=== PATIENT | female | born 1955 | race American Indian/Alaskan Native ===

== ENCOUNTER 2016-03-21 15:46 | Emergency (ER) | payer MEDICARE ==
[2016-03-21 15:59] VITALS: BP 159/107
--- NOTE | 2016-03-21 18:38 | Emergency Department Report ---
ED General Adult HPI - General Chief complaint: Skin/Abscess/Foreign Body Stated complaint: FOREIGN OBJECT IN FOOD Time Seen by Provider: 03/21/16 18:12 Source: patient Mode of arrival: Ambulatory Limitations: No Limitations - History of Present Illness Initial comments: Patient states that she almost ate a foreign body while in [facility] today and brought foreign body in with her and wanted to know if we knew what was. Patient denies any shortness of breath nausea vomiting or neck pain. - Related Data Previous Rx's Medication Instructions Recorded Last Taken Type Amoxicillin [Amoxicillin TAB] 875 mg PO BID #20 tablet 03/21/16 Unknown Rx Allergies Allergy/AdvReac Type Severity Reaction Status Date / Time No Known Allergies Allergy Verified 03/21/16 16:00 ED Review of Systems ROS: Stated complaint: FOREIGN OBJECT IN FOOD Other details as noted in HPI Comment: All other systems reviewed and negative ED Past Medical Hx - Past Medical History Previous Medical History?: Yes Hx Psychiatric Treatment: Yes - Surgical History Past Surgical History?: No - Social History Smoking Status: Current Every Day Smoker Substance Use Type: None - Medications Home Medications: Home Medications Medication Instructions Recorded Confirmed Last Taken Type Amoxicillin [Amoxicillin TAB] 875 mg PO BID #20 tablet 03/21/16 Unknown Rx ED Physical Exam - General Limitations: No Limitations General appearance: alert, in no apparent distress - Head Head exam: Present: atraumatic, normocephalic - Eye Eye exam: Present: normal appearance - ENT ENT exam: Present: mucous membranes moist - Neck Neck exam: Present: normal inspection - Respiratory Respiratory exam: Absent: respiratory distress ED Course Vital Signs 03/21/16 15:55 Temperature 98.6 F Pulse Rate 97 H Respiratory 16 Rate Blood Pressure 159/107 O2 Sat by Pulse 100 Oximetry Critical care attestation.: If time is entered above; I have spent that time in minutes in the direct care of this critically ill patient, excluding procedure time. ED Disposition Clinical Impression: Normal exam Disposition: DISCHARGED TO HOME OR SELFCARE Is pt being admited?: No Does the pt Need Aspirin: No Condition: Stable Instructions: Food Poisoning (ED) Prescriptions: Amoxicillin [Amoxicillin TAB] 875 mg PO BID #20 tablet Referrals: DR ISIDORO [Other] - 3-5 Days
== END 2016-03-21 19:09 | disposition home or self-care (01) ==
LOC: ED 15:46
DX: Z00.8 Encounter for other general examination (principal); F17.200 Nicotine dependence, unspecified, uncomplicated
CPT/HCPCS: 99282

== ENCOUNTER 2016-06-10 13:39 | Emergency (ER) | payer MEDICARE ==
--- NOTE | 2016-06-10 14:54 | Emergency Department Report ---
Entered by LIZANDRO DEL VALLE, acting as scribe for JOAQUIN WILSON NP. Chief Complaint: Dyspnea/Respdistress Stated Complaint: NAOMI Time Seen by Provider: 06/10/16 14:28 - HPI History of Present Illness: 61 y/o female presents c/o SOB that started yesterday and is aggravated by physical exertion. Pt notes dizziness, BAUTISTA, wheezing and a non-productive cough but denies chest pain. Pt endorses tobacco use. Medication includes seroquel. no cp smoker lungs cta no sinus tenderness anxious NAD ambulatory No focal or neuro deficit VSS - ROS Review of Systems: as noted in HPI - Exam Vital Signs: Vital Signs 06/10/16 14:17 Temperature 98.3 F Pulse Rate 102 H Respiratory 22 Rate Blood Pressure 134/98 O2 Sat by Pulse 96 Oximetry Physical Exam: as noted in HPI MSE screening note: Focused history and physical exam performed. Due to findings the following was ordered: ED Disposition for MSE Condition: Stable This documentation as recorded by the scribe,LIZANDRO DEL VALLE,accurately reflects the service I personally performed and the decisions made by ,JOAQUIN WILSON NP.
--- NOTE | 2016-06-10 16:12 | XRay Report ---
Chest 2 views. History: Dyspnea. Findings: The heart is mildly enlarged with normal pulmonary vascularity. The lungs are clear. No pleural abnormalities are seen. Impression: Cardiomegaly with no acute findings.
[2016-06-10 17:25] LABS: Basophils % (Auto) 0.5 % (0.0-1.8); Eosinophils % (Auto) 0.9 % (0.0-4.3); Hematocrit 39.7 % (30.3-42.9); Hemoglobin 12.9 gm/dl (10.1-14.3); Mean Corpuscular HGB Conc 33 % (30-34); Mean Corpuscular Hemoglobin 30 pg (28-32); Mean Corpuscular Volume 93 fl (79-97); Platelet Count 204 K/mm3 (140-440); Red Blood Count 4.28 M/mm3 (3.65-5.03); Red Cell Distribution Width 13.6 % (13.2-15.2)
[2016-06-10 17:45] LABS: Alanine Aminotransferase 23 units/L (7-56); Albumin 3.9 g/dL (3.9-5); Albumin/Globulin Ratio 1.3 %; Alkaline Phosphatase 131 units/L (35-129); Anion Gap 19 mmol/L; Bilirubin,Total 0.5 mg/dL (0.1-1.2); Blood Urea Nitrogen 8 mg/dL (7-17); Calcium 8.7 mg/dL (8.4-10.2); Carbon Dioxide 23 mmol/L (22-30); Chloride 102.7 mmol/L (98-107); Glucose 132 mg/dL (65-100); Sodium 141 mmol/L (137-145)
[2016-06-10] MEDS ORDERED: XOPENEX IH ONE (18:42)
[2016-06-10] MEDS ORDERED: ATROVENT IH ONE (18:43)
[2016-06-10] MEDS ORDERED: DELTASONE PO ONE (18:44)
--- NOTE | 2016-06-10 19:05 | Emergency Department Report ---
ED Shortness of Breath HPI - General Chief Complaint: Dyspnea/Respdistress Stated Complaint: NAOMI Time Seen by Provider: 06/10/16 18:34 Source: patient, family Mode of arrival: Ambulatory Limitations: No Limitations - History of Present Illness Initial Comments: 11 y/o female presents c/o difficulty breathing for 1 months but got worse yesterday and is aggravated by physical exertion. Pt notes dizziness, BAUTISTA, wheezing and a non-productive cough but denies chest pain. Pt endorses tobacco use. Medication includes seroquel. no cp. She said she smoked one pack a day for 40 years and quit 2 weeks ago. Denies any personal history of blood clots or family history of blood clots. Denies any recent long distance travel by airplane or motor vehicle. Denies taking any hormones. Denies any recent surgery. She medical history schizoaffective disorder and hepatitis C.Denies any fever or chills. Denies any recent weight loss or night sweats. Denies coughing up blood. MD Complaint: shortness of breath, cough Onset/Timin -: month(s) Radiation: other (none) Pain Scale: 0 Improves With: rest Worsens With: exertion Known History Of: other (nicotine abuse, hepatitis C and schizoaffective disorder) Context: occured during exertion, smoke/fume exposure, anxiety Associated Symptoms: cough, other (dizziness) Treatments Prior to Arrival: none - Related Data Home Oxygen Therapy: No Previous Rx's Medication Instructions Recorded Last Taken Type Amoxicillin [Amoxicillin TAB] 875 mg PO BID #20 tablet 03/21/16 Unknown Rx ALPRAZolam [Xanax TAB] 0.25 mg PO BID PRN #10 tab 06/10/16 Unknown Rx Allergies Allergy/AdvReac Type Severity Reaction Status Date / Time No Known Allergies Allergy Verified 03/21/16 16:00 ED Review of Systems ROS: Stated complaint: NAOMI Other details as noted in HPI Comment: All other systems reviewed and negative Constitutional: denies: chills, fever ENT: denies: ear pain, throat pain, congestion Respiratory: cough, shortness of breath, SOB with exertion, SOB at rest. denies : orthopnea, stridor, wheezing Cardiovascular: dyspnea on exertion. denies: chest pain, palpitations, edema, syncope, paroxysmal nocturnal dyspnea Gastrointestinal: denies: abdominal pain, nausea, vomiting, diarrhea, constipation Genitourinary: denies: urgency, dysuria, frequency, hematuria, discharge Musculoskeletal: denies: back pain, arthralgia Skin: denies: rash Neurological: other (dizziness). denies: headache, weakness, numbness, paresthesias, confusion, abnormal gait, vertigo ED Past Medical Hx - Past Medical History Previous Medical History?: Yes Hx Psychiatric Treatment: Yes (Schizoaffective) Additional medical history: hepatitis C - Surgical History Past Surgical History?: No - Family History Family history: hypertension - Social History Smoking Status: Current Every Day Smoker Substance Use Type: Alcohol, Prescribed - Medications Home Medications: Home Medications Medication Instructions Recorded Confirmed Last Taken Type Amoxicillin [Amoxicillin TAB] 875 mg PO BID #20 tablet 03/21/16 Unknown Rx ALPRAZolam [Xanax TAB] 0.25 mg PO BID PRN #10 tab 06/10/16 Unknown Rx ED Physical Exam - General Limitations: No Limitations General appearance: alert, in no apparent distress - Head Head exam: Present: atraumatic, normocephalic, normal inspection - Eye Eye exam: Present: normal appearance, PERRL, EOMI. Absent: scleral icterus, conjunctival injection, periorbital swelling, periorbital tenderness Pupils: Present: normal accommodation - ENT ENT exam: Present: normal exam, normal orophraynx, mucous membranes moist, TM's normal bilaterally, normal external ear exam - Neck Neck exam: Present: normal inspection, full ROM. Absent: tenderness, meningismus, lymphadenopathy - Expanded Neck Exam Expanded Neck exam: Absent: tenderness, midline deformity, anterior neck swelling, carotid bruit - Respiratory Respiratory exam: Present: normal lung sounds bilaterally, respiratory distress (shortness of breath on exertion), other (dry cough). Absent: wheezes, rales, rhonchi, stridor, chest wall tenderness, accessory muscle use, decreased breath sounds, prolonged expiratory - Cardiovascular Cardiovascular Exam: Present: regular rate, normal rhythm, normal heart sounds. Absent: systolic murmur, diastolic murmur, JVD - Expanded Cardiovascular Exam Expanded Peripheral pulses: 2+: Radial (R), Radial (L), Posterior Tibialis (R), Posterior Tibialis (L), Dorsalis Pedis (R), Dorsalis Pedis (L) - GI/Abdominal GI/Abdominal exam: Present: soft, normal bowel sounds. Absent: distended, tenderness, guarding, rebound, rigid - Extremities Exam Extremities exam: Present: normal inspection, full ROM, normal capillary refill. Absent: tenderness, pedal edema, joint swelling, calf tenderness - Back Exam Back exam: Present: normal inspection, full ROM. Absent: CVA tenderness (L), muscle spasm, paraspinal tenderness, vertebral tenderness, rash noted - Neurological Exam Neurological exam: Present: alert, oriented X3, normal gait, reflexes normal. Absent: motor sensory deficit - Psychiatric Psychiatric exam: Present: anxious - Skin Skin exam: Present: warm, dry, intact, normal color. Absent: rash ED Course Vital Signs 06/10/16 14:17 Temperature 98.3 F Pulse Rate 102 H Respiratory 22 Rate Blood Pressure 134/98 O2 Sat by Pulse 96 Oximetry Vital Signs 06/10/16 06/10/16 14:17 21:50 Temperature 98.3 F Pulse Rate 102 H 92 H Respiratory 22 20 Rate Blood Pressure 134/98 Blood Pressure 130/82 [Left] O2 Sat by Pulse 96 98 Oximetry - Reevaluation(s) Reevaluation #1: 06/10/16 19:05 Patient stable. She received breathing treatment in ED room and that she felt better after treatment. Awaiting results of d-dimer. Reevaluation #2: 06/10/16 20:04 Patient with elevated d-dimer therefore CT and she'll chest ordered. Reevaluation #3: 06/10/16 21:[address] angiogram of chest done. No adverse reaction from the eye. Exercise pulse ox 96-97% on room air. ED Medical Decision Making - Lab Data Result diagrams: 06/10/16 17:10 06/10/16 17:10 Lab Results 06/10/16 06/10/16 06/10/16 Range/Units 17:10 17:10 17:10 WBC 8.0 (4.5-11.0) K/mm3 RBC 4.28 (3.65-5.03) M/mm3 Hgb 12.9 (10.1-14.3) gm/dl Hct 39.7 (30.3-42.9) % MCV 93 (79-97) fl MCH 30 (28-32) pg MCHC 33 (30-34) % RDW 13.6 (13.2-15.2) % Plt Count 204 (140-440) K/mm3 Lymph % (Auto) 23.6 (13.4-35.0) % [place] % (Auto) 7.5 H (0.0-7.3) % Eos % (Auto) 0.9 (0.0-4.3) % Baso % (Auto) 0.5 (0.0-1.8) % Lymph # 1.9 (1.2-5.4) K/mm3 [place] # 0.6 (0.0-0.8) K/mm3 Eos # 0.1 (0.0-0.4) K/mm3 Baso # 0.0 (0.0-0.1) K/mm3 Seg Neutrophils % 67.5 (40.0-70.0) % Seg Neutrophils # 5.4 (1.8-7.7) K/mm3 PT (12.2-14.9) Sec. INR (0.87-1.13) APTT (24.2-36.6) Sec. D-Dimer (0-234) ng/mlDDU Sodium 141 (137-145) mmol/L Potassium 4.0 (3.6-5.0) mmol/L Chloride 102.7 (98-107) mmol/L Carbon Dioxide 23 (22-30) mmol/L Anion Gap 19 mmol/L BUN 8 (7-17) mg/dL Creatinine 0.8 (0.7-1.2) mg/dL Estimated GFR > 60 ml/min BUN/Creatinine Ratio 10.00 % Glucose 132 H (65-100) mg/dL Calcium 8.7 (8.4-10.2) mg/dL Total Bilirubin 0.5 (0.1-1.2) mg/dL AST 23 (5-40) units/L ALT 23 (7-56) units/L Alkaline Phosphatase 131 H (35-129) units/L Troponin T < 0.010 (0.00-0.029) ng/mL Total Protein 7.0 (6.3-8.2) g/dL Albumin 3.9 (3.9-5) g/dL Albumin/Globulin Ratio 1.3 % 06/10/17 Range/Units 19:24 WBC (4.5-11.0) K/mm3 RBC (3.65-5.03) M/mm3 Hgb (10.1-14.3) gm/dl Hct (30.3-42.9) % MCV (79-97) fl MCH (28-32) pg MCHC (30-34) % RDW (13.2-15.2) % Plt Count (140-440) K/mm3 Lymph % (Auto) (13.4-35.0) % [place] % (Auto) (0.0-7.3) % Eos % (Auto) (0.0-4.3) % Baso % (Auto) (0.0-1.8) % Lymph # (1.2-5.4) K/mm3 [place] # (0.0-0.8) K/mm3 Eos # (0.0-0.4) K/mm3 Baso # (0.0-0.1) K/mm3 Seg Neutrophils % (40.0-70.0) % Seg Neutrophils # (1.8-7.7) K/mm3 PT 13.4 (12.2-14.9) Sec. INR 1.03 (0.87-1.13) APTT 31.6 (24.2-36.6) Sec. D-Dimer 1041.32 H (0-234) ng/mlDDU Sodium (137-145) mmol/L Potassium (3.6-5.0) mmol/L Chloride (98-107) mmol/L Carbon Dioxide (22-30) mmol/L Anion Gap mmol/L BUN (7-17) mg/dL Creatinine (0.7-1.2) mg/dL Estimated GFR ml/min BUN/Creatinine Ratio % Glucose (65-100) mg/dL Calcium (8.4-10.2) mg/dL Total Bilirubin (0.1-1.2) mg/dL AST (5-40) units/L ALT (7-56) units/L Alkaline Phosphatase (35-129) units/L Troponin T (0.00-0.029) ng/mL Total Protein (6.3-8.2) g/dL Albumin (3.9-5) g/dL Albumin/Globulin Ratio % - EKG Data -: EKG Interpreted by Me (Dr. Armstrong) EKG shows normal: sinus rhythm (sinus rhythm at 99 bpm) - EKG Data Interpretation: [facility] - Radiology Data Radiology results: report reviewed History of chest reveals cardiomegaly without any acute findings. CT anterior chest reveals patient has no evidence of embolism, moderate cardiomegaly. CO2 left-sided pulmonary nodules in the upper breakthrough seizure. Recommended follow-up CT scan in 6 months. 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 She reports that she is a smoker and smokes one pack per day for 40 years and try to quit in 2 weeks ago. She does not have any history of heart disease but her x-ray reflects that she has moderate cardiomegaly. She does not have any history of hypertension, she does not have a intermediate risk factor for blood clots. I spoke with Dr. Cummings regarding patient presentation, lab work and physical findings include x-ray. D-dimer done and was elevated therefore CT angios of the chest done which shows that patient has 2 nodules to left lung, no pulmonary embolism, perhis are clear with moderate cardiomegaly. Her CMP reflects mild increase in alkaline phosphatase at 6 and blood glucose. This communicated to patient and she is very anxious and worried about lung cancer. Her walking pulse ox was 96-97% and her heart rate stayed below 100. Discussed the case with Dr. Lemus took over from Dr. Cummings and it was agreed that patient can be discharged home to follow up with her primary care physician is Dr. Mendoza in 2-3 days and also referral to tube station attendant and for outpatient lung biopsy. Patient voiced understanding of discharge instruction and treatment plan. She was given Deltasone 60 mg by mouth in emergency room and Xopenex 2.5 mg/Atrovent 0.5 mg inhalation but she said this did not help her. I encouraged her to stop smoking. Emotional support and positive reinforcement given. Pt discharged home with her in stable condition Critical care attestation.: If time is entered above; I have spent that time in minutes in the direct care of this critically ill patient, excluding procedure time. ED Disposition Clinical Impression: Multiple lung nodules on CT, Shortness of breath, Cardiomegaly, Anxiety, Nicotine abuse, Encounter for smoking cessation counseling Disposition: DISCHARGED TO HOME OR SELFCARE Is pt being admited?: No Does the pt Need Aspirin: No Condition: Stable Instructions: How to Stop Smoking (ED), Dyspnea (ED), Anxiety (ED), Needle Biopsy of the Lung (ED), Pulmonary Nodules (ED) Additional Instructions: Please call Dr. Mendoza's office tomorrow and schedule an appointment. Take CD of chest x-ray and CT scan revealed Please take Xanax as instructed and please do not drive or operate heavy machinery as this will cause drowsiness. He will need an outpatient needle biopsy a few lungs. Please refer to discharge instruction on needle Biopsy and pulmonary nodules. She will also need to follow-up with a tube station attendant. C will follow up in her discharge instruction paperwork. If You developed worsening shortness of breath, please return to the emergency room JACQUELINE Prescriptions: ALPRAZolam [Xanax TAB] 0.25 mg PO BID PRN #10 tab PRN Reason: Anxiety Referrals: JAYLON MENDOZA JR, MD [Primary Care Provider] - 06/12/16 ASHOK MONTES MD [Staff Physician] - 06/12/16 Forms: Accompanied Note, Work/School Release Form(ED)
[2016-06-10 19:44] LABS: INR 1.03 (0.87-1.13)
[2016-06-10 19:45] LABS: Partial Thromboplastin Time 31.6 Sec. (24.2-36.6)
[2016-06-10] MEDS ORDERED: NACL ONE (20:01)
--- NOTE | 2016-06-10 20:51 | Cat Scan Report ---
FINAL REPORT PROCEDURE: CT ANGIO CHEST TECHNIQUE: Computerized tomographic angiography of the chest was performed after the IV injection of iodinated nonionic contrast including image processing. The image data was postprocessed using 2-dimensional multiplanar reformatted (MPR) and 3-dimensional (MIP and/or volume rendered) techniques. HISTORY: SOB COMPARISON: No prior studies are available for comparison. FINDINGS: Heart and pericardium: There is moderate cardiomegaly. Thoracic aorta: Normal calibre. However aorta is not opacified.. Pulmonary vasculature: Normal. Lymph nodes: No enlarged thoracic lymph nodes. Lungs: There are 2 focal nodules in relation to the left oblique fissure in its upper portion which are measuring 7 millimeters x 5 millimeters and 13 millimeters x 5 millimeters. There is mild prominence of interstitial markings. No confluent infiltrates are identified.. Pleural space: Bilateral pleural spaces are clear.. Musculoskeletal structures: No significant abnormality. Upper abdominal structures: No significant abnormality. IMPRESSION: No evidence of pulmonary embolism. Moderate cardiomegaly. Evaluation of the aorta is limited due to lack of opacification. There are 2 left-sided pulmonary nodules in relation to the upper oblique fissure. A 3 to six-month follow-up study is recommended.
[2016-06-10 22:32] VITALS: BP 143/96
== END 2016-06-10 22:32 | disposition home or self-care (01) ==
LOC: ED 13:39
DX: R06.02 Shortness of breath (principal); I51.7 Cardiomegaly; F41.9 Anxiety disorder, unspecified; F17.200 Nicotine dependence, unspecified, uncomplicated; R91.8 Other nonspecific abnormal finding of lung field; F20.9 Schizophrenia, unspecified; Z86.19 Personal history of other infectious and parasitic diseases
CPT/HCPCS: 36415; 71020; 71275; 80053; 84484; 85025; 85379; 85610; 85730; 93005; 93010; 94640; 99284; J7512; Q9967